=== PATIENT | male | born 1970 | race Caucasian/White ===

== ENCOUNTER → 2020-10-08 | Outpatient (CLI) | payer SELFPAY | LOC: M OUTALCOH 07:43 | PROVIDERS: ATTEND Psychiatry & Neurology Addiction Medicine | DX: F10.10 Alcohol abuse, uncomplicated (principal) ==

== ENCOUNTER 2020-10-13 09:27 | Outpatient (RCR) | payer SELFPAY | END 2020-11-04 | LOC: M OUTALCOH 09:27 | PROVIDERS: ATTEND Psychiatry & Neurology Addiction Medicine | DX: F10.10 Alcohol abuse, uncomplicated (principal); Z72.0 Tobacco use ==